=== PATIENT | male | born 1945 | race American Indian/Alaskan Native ===

== ENCOUNTER 2019-06-26 13:12 | Emergency (ER) | payer MEDICARE ==
[2019-06-26] MEDS ORDERED: BOOSTRIX IM ONE (13:33)
[2019-06-26] MEDS ORDERED: TYLENOL PO ONE (13:41)
--- NOTE | 2019-06-26 13:54 | Emergency Department Report ---
- General Chief complaint: Dizziness Stated complaint: DIZZINESS Time Seen by Provider: 06/26/19 13:29 Source: EMS Mode of arrival: Ambulatory Limitations: Altered Mental Status - History of Present Illness Initial comments: Mr. Coon is a 73 yo male with hx of atlaxia, pancytopenia, anemia, HTN who presents with head trauma, laceration and dizziness. He fell in the bathroom on yesterday. Has diffuse body pain. He has facial laceration. Unknown tetanus status According to discharge documentation from [facility], Mr. Coon was discharged on June 17 after 5 day hospital admission. At that time Mr. Coon was being evaluated for 1 month of dizziness generalized body pain and rash. Patient also desired halfway placement. Discharge medications include amlodipine and meclizine. He was [facility]u. Other medications include diphenhydramine and topical hydrocortisone. He currently resides at a new personal snf. MD Complaint: generalized weakness -: month(s) (1) Location: generalized Severity: mild Severity scale (0 -10): 7 Consistency: constant Improves with: none Worsens with: none Associated Symptoms: other (generalized pain, dizziness, laceration after fall) - Related Data Previous Rx's Medication Instructions Recorded Last Taken Type Acetaminophen [Acetaminophen TAB] 500 mg PO Q6HR PRN #20 tablet 06/26/19 Unknown Rx ED Review of Systems ROS: Stated complaint: DIZZINESS Other details as noted in HPI Comment: All other systems reviewed and negative Constitutional: malaise Musculoskeletal: myalgia ED Past Medical Hx - Past Medical History Previous Medical History?: Yes Hx Hypertension: Yes Hx Diabetes: Yes Hx Tuberculosis: No Additional medical history: pt is poor historian - Surgical History Past Surgical History?: No Additional Surgical History: pt is poor historian - Social History Smoking Status: Never Smoker Substance Use Type: None - Medications Home Medications: Home Medications Medication Instructions Recorded Confirmed Last Taken Type Acetaminophen [Acetaminophen TAB] 500 mg PO Q6HR PRN #20 tablet 06/26/19 Unknown Rx ED Physical Exam - General Limitations: Altered Mental Status General appearance: alert, in no apparent distress - Head Head exam: Present: normocephalic, other (3 cm laceration superficial dried blood lateral right eyebrow) - Eye Eye exam: Present: normal appearance - ENT ENT exam: Present: mucous membranes moist - Neck Neck exam: Present: normal inspection, full ROM - Respiratory Respiratory exam: Present: normal lung sounds bilaterally. Absent: respiratory distress, wheezes, rales, rhonchi - Cardiovascular Cardiovascular Exam: Present: regular rate, normal rhythm, normal heart sounds. Absent: systolic murmur, diastolic murmur, rubs, gallop - GI/Abdominal GI/Abdominal exam: Present: soft, normal bowel sounds. Absent: distended, tenderness, guarding, rebound - Rectal Rectal exam: Present: deferred - Extremities Exam Extremities exam: Present: normal inspection - Neurological Exam Neurological exam: Present: alert, oriented X3 - Psychiatric Psychiatric exam: Present: normal affect, normal mood - Skin Skin exam: Present: warm, dry, intact, normal color. Absent: rash ED Course Vital Signs 06/26/19 13:20 Temperature 98.6 F Pulse Rate 52 L Respiratory 20 Rate Blood Pressure 131/72 Blood Pressure 131/72 [Right] O2 Sat by Pulse 100 Oximetry ED Medical Decision Making - Radiology Data Radiology results: report reviewed CT head: No acute process - Medical Decision Making 1. Closed head injury: CT head without acute traumatic injury of 2. Facial laceration: Tdap booster provided suture repair not indicated 3. Dizziness and body pain with recent diagnosis of pancytopenia and anemia. Referred to [facility]. Prescribed Tylenol for pain control. Upon reassessment, patient was able to stand and transfer with minimal assistance. He has walking stick at the bedside. He appears steady yet careful with his gait. Upon discharge, Mr. Coon stated that he is effectively homeless. There is "too much friction" at his new personal snf. Awaiting case management recommendations. Critical care attestation.: If time is entered above; I have spent that time in minutes in the direct care of this critically ill patient, excluding procedure time. ED Disposition Clinical Impression: Closed head injury, Laceration of face, Lightheadedness, Whole body pain, Pancytopenia Disposition: DC-01 TO HOME OR SELFCARE Is pt being admited?: No Does the pt Need Aspirin: No Condition: Stable Additional Instructions: Please make an appointment to see a clinic doctor as soon as you can. Prescriptions: Acetaminophen [Acetaminophen TAB] 500 mg PO Q6HR PRN #20 tablet PRN Reason: Pain , Severe (7-10) Referrals: JORGE SYLVESTER MD [Primary Care Provider] - 3-5 Days
--- NOTE | 2019-06-26 14:49 | Cat Scan Report ---
CT BRAIN: 06/26/2019 INDICATION / CLINICAL INFORMATION: Trauma. COMPARISON: None available. FINDINGS: BRAIN/INTRACRANIAL STRUCTURES: Unenhanced CT images of the brain demonstrate no evidence of acute int racranial abnormality. Ventricles and sulci are prominent in size, consistent with prominent diffuse cerebral atrophy. There is no evidence of intracranial hemorrhage or mass. There are no abnormal extra-axial fluid jeana ections. Atherosclerotic vascular calcifications are present in the distal internal carotid arteries and verte bral arteries. EXTRACRANIAL STRUCTURES: Right periorbital soft tissue swelling is present, with no evidence to sugge st intraorbital abnormality. IMPRESSION: No evidence of acute intracranial abnormality. Chronic and age-related changes. All CT scans at this location are performed using dose reduction to ALARA by means of automated expos ure control. Signer Name: Oj Figueroa MD Signed: 06/26/2019 2:45 PM Workstation Name: [id number]
[2019-06-26 19:42] VITALS: BP 127/58
== END 2019-06-26 20:21 | disposition home or self-care (01) ==
LOC: ED 13:12
DX: S01.81XA Laceration without foreign body of other part of head, initial encounter (principal); R42 Dizziness and giddiness; M79.10 Myalgia, unspecified site; D61.818 Other pancytopenia; I10 Essential (primary) hypertension; E11.9 Type 2 diabetes mellitus without complications; W19.XXXA Unspecified fall, initial encounter; Y93.89 Activity, other specified; Y92.89 Other specified places as the place of occurrence of the external cause; Y99.8 Other external cause status
CPT/HCPCS: 70450; 90471; 90715

== ENCOUNTER 2019-07-02 16:51 | Emergency (ER) | payer MEDICARE ==
--- NOTE | 2019-07-02 19:02 | Emergency Department Report ---
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 Patient also have pancytopenia. Patient brought to the emergency room via EMS after patient was found wondering in [email or web address]'s parking lot. EMS report the patient was confused and does not know his current location or the time. Upon arrival to the ER, patient is alert and oriented 3, in no acute distress. Patient kept saying that his is admitted to this hospital and he gave an name and he wants to be re-joint with his . He stated that his 2 kids are asking about. He stated that he has a 15 years old son and in 10 years old daughter. Patient was seen here 6 days ago for evaluation after a fall with a negative CT brain for acute finding. - Related Data Previous Rx's Medication Instructions Recorded Last Taken Type Acetaminophen [Acetaminophen TAB] 500 mg PO Q6HR PRN #20 tablet 06/26/19 Unknown Rx Allergies Allergy/AdvReac Type Severity Reaction Status Date / Time No Known Allergies Allergy Verified 07/03/19 18:23 ED Review of Systems ROS: Stated complaint: GENERAL BODY PAIN/CONFUSED Other details as noted in HPI Comment: All other systems reviewed and negative Constitutional: denies: chills, fever Respiratory: denies: cough, orthopnea, shortness of breath, SOB with exertion, SOB at rest, wheezing Cardiovascular: denies: chest pain Gastrointestinal: denies: abdominal pain, nausea Musculoskeletal: denies: back pain Neurological: denies: headache, weakness, numbness, paresthesias, confusion, abnormal gait ED Past Medical Hx - Past Medical History Hx Hypertension: Yes Hx Diabetes: Yes Hx Tuberculosis: No Additional medical history: pt is poor historian - Surgical History Additional Surgical History: pt is poor historian - Social History Smoking Status: Former Smoker Substance Use Type: None - Medications Home Medications: Home Medications Medication Instructions Recorded Confirmed Last Taken Type Acetaminophen [Acetaminophen TAB] 500 mg PO Q6HR PRN #20 tablet 06/26/19 Unknown Rx ED Physical Exam - General Limitations: Altered Mental Status General appearance: alert, in no apparent distress - Head Head exam: Present: atraumatic, normocephalic, normal inspection - Eye Eye exam: Present: normal appearance, PERRL - ENT ENT exam: Present: normal exam, normal orophraynx, mucous membranes moist - Neck Neck exam: Present: normal inspection, full ROM. Absent: tenderness, meningismus, lymphadenopathy, thyromegaly - Respiratory Respiratory exam: Present: normal lung sounds bilaterally - Cardiovascular Cardiovascular Exam: Present: regular rate, normal rhythm, normal heart sounds - GI/Abdominal GI/Abdominal exam: Present: soft, normal bowel sounds. Absent: distended, tenderness, guarding, rebound, rigid, organomegaly, mass, bruit, pulsatile mass, hernia - Extremities Exam Extremities exam: Present: normal inspection, full ROM, normal capillary refill - Back Exam Back exam: Present: normal inspection, full ROM. Absent: CVA tenderness (R), CVA tenderness (L), muscle spasm, paraspinal tenderness, vertebral tenderness - Neurological Exam Neurological exam: Present: alert, oriented X3, CN II-XII intact, reflexes normal - Psychiatric Psychiatric exam: Present: normal mood - Skin Skin exam: Present: warm, intact, normal color ED Course Vital Signs 07/02/19 07/02/19 07/03/19 18:04 22:15 02:34 Temperature 98.3 F Pulse Rate 88 78 80 Respiratory 16 16 Rate Blood Pressure 127/82 180/101 154/98 [Right] O2 Sat by Pulse 97 96 95 Oximetry ED Medical Decision Making - Lab Data Result diagrams: 07/02/19 20:43 07/02/19 20:43 - Medical Decision Making Patient is 73 years old male with history of chronic ataxia using 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 Patient also have pancytopenia. Patient brought to the emergency room via EMS after patient was found wondering in [email or web address]'s parking lot. EMS report the patient was confused and does not know his current location or the time. Upon arrival to the ER, patient is alert and oriented 3, in no acute distress. Patient kept saying that his is admitted to this hospital and he gave an name and he wants to be re-joint with his . He stated that his 2 kids are asking about. He stated that he has a 15 years old son and in 10 years old daughter. Patient was seen here 6 days ago for evaluation after a fall with a negative CT brain for acute finding. Patient remained stable in the emergency room. Labs reviewed and is unremarkable. Patient is obviously homeless. Patient will be refer to case management, pediatric social worker for placement. Critical care attestation.: If time is entered above; I have spent that time in minutes in the direct care of this critically ill patient, excluding procedure time. ED Disposition Clinical Impression: Altered mental status, Homelessness Disposition: ELOPED Is pt being admited?: No Condition: Stable Referrals: JORGE SYLVESTER MD [Primary Care Provider] - 3-5 Days
[2019-07-02 20:54] LABS: Hematocrit 38.9 % (35.5-45.6); Mean Corpuscular HGB Conc 33 % (32-34); Mean Corpuscular Volume 96 fl (84-94); Platelet Count 114 K/mm3 (140-440); Red Blood Count 4.03 M/mm3 (3.65-5.03); Red Cell Distribution Width 15.1 % (13.2-15.2)
[2019-07-02 21:17] LABS: Albumin 3.3 g/dL (3.9-5); BUN/Creatinine Ratio 14; Blood Urea Nitrogen 10 mg/dL (9-20); Calcium 8.6 mg/dL (8.4-10.2); Hemolysis Index 191
[2019-07-02 21:27] LABS: Alanine Aminotransferase 39 units/L (7-56)
[2019-07-02 22:16] LABS: Anisocytosis 1+; Basophils % (Manual) 0 % (0.0-1.8); Ovalocytes 1+; Total Cells Counted 100
[2019-07-02 22:17] LABS: Platelet Estimate Appears Decreased
[2019-07-03 02:35] VITALS: BP 154/98
== END 2019-07-03 12:30 | disposition left against medical advice (07) ==
LOC: ED 16:51
DX: R41.82 Altered mental status, unspecified (principal); R27.0 Ataxia, unspecified; I10 Essential (primary) hypertension; E11.9 Type 2 diabetes mellitus without complications; Z59.0 Homelessness; Z87.891 Personal history of nicotine dependence
CPT/HCPCS: 36415; 80053; 85007; 85025

== ENCOUNTER 2019-07-03 17:58 | Emergency (ER) | payer MEDICARE ==
--- NOTE | 2019-07-03 18:25 | Event Note ---
ED Screening Note Date of service: 07/03/19 Time: 18:21 ED Screening Note: This is a 73 y.o. M. that presents to the ER with neck and thoracic back pain for 1 week. Patient states he fell 1 week ago. This initial assessment/diagnostic orders/clinical plan/treatment(s) is/are subject to change based on patients health status, clinical progression and re- assessment by fellow clinical providers in the ED. Further treatment and workup at subsequent clinical providers discretion. Patient/guardian urged not to elope from the ED as their condition may be serious if not clinically assessed and managed. Initial orders include: XR of C-spine and thoracic spine
[2019-07-03] MEDS ORDERED: TYLENOL PO ONE (20:10)
--- NOTE | 2019-07-03 21:46 | Cat Scan Report ---
CT CERVICAL SPINE WITHOUT CONTRAST INDICATION: Neck pain after fall. COMPARISON: None available. TECHNIQUE: Axial, coronal and sagittal CT imaging of the cervical spine without contrast was performe d. All CT scans at this location are performed using CT dose reduction for ALARA by means of automat ed exposure control. FINDINGS: VERTEBRAE:No acute fracture. There is minimal retrolisthesis at C4-C5 and anterolisthesis at C7-T1. DISC SPACES: Multilevel severe discogenic degenerative changes are noted from C4 through C7. FACET JOINTS:Facet hypertrophy is noted bilaterally at C7-T1. CENTRAL CANAL: Multilevel neural foraminal narrowing is noted bilaterally. No significant central can al stenosis is seen. SOFT TISSUES:No significant abnormality. LUNG APICES: No significant abnormality. ADDITIONAL FINDINGS: None IMPRESSION: 1. No acute abnormality of the cervical spine. 2. Severe cervical spondylosis. Signer Name: Juan Aguilar MD Signed: 07/03/2019 9:41 PM Workstation Name: [id number]
--- NOTE | 2019-07-03 21:50 | Cat Scan Report ---
CT lumbar spine without contrast CLINICAL HISTORY: Back pain, fall. FINDINGS: There is no CT evidence of acute compression or fracture involving lumbar spine. The irregu larity of the posterior endplates at L4-5 appear to be on a degenerative basis at. Additionally, the spondylosis at this level mildly deforms the ventral thecal sac. The facet joint hypertrophy is a gre ater on the right at L4-5 with mild foraminal narrowing. There is no significant spondylolisthesis at. There are advanced degenerative disc changes at L5-S1 w ith vacuum phenomenon. The broad-based disc bulge mildly encroaches on the lateral recesses. The face t joint arthropathy is greater on the left with moderate left neural foraminal narrowing. The disc bulge L3-4 slightly flattens the ventral thecal sac at. The disc bulge and facet joint hyper trophy at L2-3 mildly deform the thecal sac at. There is slight foraminal narrowing bilaterally. All CT scans at this location are performed using the CT dose reduction for [employer] by means of automated e xposure control. IMPRESSION: There is no CT evidence of acute compression fracture involving the lumbar spine There are multilevel degenerative changes, most notably at L4-5 and L5-S1 as detailed above. Signer Name: Jonas Tobin MD Signed: 07/03/2019 9:46 PM Workstation Name: [id number]
--- NOTE | 2019-07-04 00:07 | Emergency Department Report ---
ED Fall HPI - General Chief Complaint: Back Pain/Injury Stated Complaint: BACK/RT KNEE PAIN Time Seen by Provider: 07/03/19 18:21 Source: patient Mode of arrival: Ambulatory - History of Present Illness Initial Comments: Patient is a 73-year-old -[place] male with chronic back pain who presented to the ED with acute exacerbation of his chronic low back pain and neck pain for the last 5 days. Patient states that he fell on the floor 5 days ago when trying to stand up from a seated position on the toilet. Patient states that he was initially evaluated in this ED and had a head CT scan without contrast which was all normal. Patient states that he was discharged home but was never discharged home on any medications for pain. Patient states that he has been having persistent neck and back pain since then. Patient denies easiness, loss of consciousness, nausea, vomiting, abdominal pain, chest pain, shortness of breath, fever, chills, change in vision, hematuria or dysuria. MD Complaint: fall, other (Neck and back pain from a recent fall 5 days ago) -: Sudden, days(s) (5) Fall From: other (from a seated position on a toilet) When Fall Occurred: other (5 days ago) Fall Witnessed: no Place Fall Occurred: home Loss of Consciousness: none Prolonged Down Time?: no Symptoms Prior to Fall: none Location: neck, back Severity: moderate Severity scale (0 -10): 5 Quality: sharp, aching Context: other (lost balance) Associated Symptoms: denies, neck pain. denies: headache, numbness, weakness, chest paint, abdominal pain, hematuria, lightheaded, confusion, other - Related Data Previous Rx's Medication Instructions Recorded Last Taken Type Acetaminophen [Acetaminophen TAB] 500 mg PO Q6HR PRN #20 tablet 06/26/19 Unknown Rx Allergies Allergy/AdvReac Type Severity Reaction Status Date / Time No Known Allergies Allergy Verified 07/03/19 18:23 ED Review of Systems ROS: Stated complaint: BACK/RT KNEE PAIN Other details as noted in HPI Constitutional: denies: chills, fever Eyes: denies: eye pain, eye discharge, vision change ENT: denies: ear pain, throat pain Respiratory: denies: cough, shortness of breath, wheezing Cardiovascular: denies: chest pain, palpitations Endocrine: no symptoms reported Gastrointestinal: denies: abdominal pain, nausea, vomiting, diarrhea Genitourinary: denies: urgency, dysuria Musculoskeletal: back pain, arthralgia (neck pain), myalgia. denies: joint swelling Skin: denies: rash, lesions Neurological: denies: headache, weakness, paresthesias Psychiatric: denies: anxiety, depression Hematological/Lymphatic: denies: easy bleeding, easy bruising ED Past Medical Hx - Past Medical History Previous Medical History?: Yes Hx Hypertension: Yes Hx Diabetes: Yes Hx Tuberculosis: No Additional medical history: pt is poor historian - Surgical History Past Surgical History?: Yes Additional Surgical History: pt is poor historian - Social History Smoking Status: Never Smoker Substance Use Type: None - Medications Home Medications: Home Medications Medication Instructions Recorded Confirmed Last Taken Type Acetaminophen [Acetaminophen TAB] 500 mg PO Q6HR PRN #20 tablet 06/26/19 Unknown Rx ED Physical Exam - General Limitations: No Limitations General appearance: alert, in no apparent distress - Head Head exam: Present: atraumatic, normocephalic, normal inspection - Eye Eye exam: Present: normal appearance, PERRL, EOMI. Absent: scleral icterus, conjunctival injection, nystagmus, periorbital swelling, periorbital tenderness Pupils: Present: normal accommodation - ENT ENT exam: Present: normal exam, normal orophraynx, mucous membranes moist, TM's normal bilaterally, normal external ear exam - Neck Neck exam: Present: normal inspection, tenderness (Palpable cervical paraspinal musculoskeletal tenderness), full ROM - Respiratory Respiratory exam: Present: normal lung sounds bilaterally. Absent: respiratory distress, wheezes, rales, rhonchi, chest wall tenderness, accessory muscle use, prolonged expiratory - Cardiovascular Cardiovascular Exam: Present: regular rate, normal rhythm, normal heart sounds. Absent: systolic murmur, diastolic murmur, rubs, gallop - GI/Abdominal GI/Abdominal exam: Present: soft, normal bowel sounds. Absent: distended, tenderness, guarding, rebound, hyperactive bowel sounds, organomegaly - Rectal Rectal exam: Present: deferred - Extremities Exam Extremities exam: Present: normal inspection, full ROM, normal capillary refill - Back Exam Back exam: Present: normal inspection, full ROM, tenderness (Palpable lumbosacral paraspinal musculoskeletal tenderness), muscle spasm, paraspinal tenderness. Absent: CVA tenderness (L) - Neurological Exam Neurological exam: Present: alert, oriented X3, CN II-XII intact, normal gait, reflexes normal - Psychiatric Psychiatric exam: Present: normal affect, normal mood - Skin Skin exam: Present: warm, dry, intact, normal color. Absent: rash ED Course Vital Signs 07/03/19 07/03/19 18:22 20:22 Temperature 98.1 F Pulse Rate 89 Respiratory 16 16 Rate Blood Pressure 117/80 O2 Sat by Pulse 93 Oximetry - Reevaluation(s) Reevaluation #1: 07/04/19 00:05 This is a 73-year-old -[place] male with chronic back pain who presented to the ED with acute exacerbation of his chronic low back pain and neck pain for the last 5 days. In the ED, patient is alert and oriented 3 and is not in distress, but appears to be in pain. Patient was treated for pain in the ED and L-spine CT scan without contrast shows no acute fractures or subluxations but chronic degenerative lumbar disc disease. The C-spine CT scan without contrast also shows no acute fractures or subluxations but chronic degenerative cervical disc disease. On reevaluation, patient's pain resolved with medications, patient has been sleeping in the room with no difficulty and ambulating normally in the ED using his walking cane. Patient was discharged home and advised to take Tylenol as needed for pain and advised to follow-up with his primary care physician in 5-7 days for reevaluation or return to the ED immediately if symptoms get worse. 07/04/19 00:07 07/04/19 00:08 07/04/19 00:11 07/04/19 00:17 ED Medical Decision Making - Radiology Data Radiology results: report reviewed, image reviewed Findings [address] [address] Cat Scan Report Signed Patient: RENY FUNG MR#: [id number] 36 : 1945 Acct:[id number] Age/Sex: 73 / M ADM Date: 07/03/19 Loc: ED Attending Dr: Ordering Physician: DOMONIQUE BOYCE Date of Service: 07/03/19 Procedure(s): CT lumbar spine wo con Accession Number(s): [id number] cc: DOMONIQUE BOYCE CT lumbar spine without contrast CLINICAL HISTORY: Back pain, fall. FINDINGS: There is no CT evidence of acute compression or fracture involving lumbar spine. The irregularity of the posterior endplates at L4-5 appear to be on a degenerative basis at. Additionally, the spondylosis at this level mildly deforms the ventral thecal sac. The facet joint hypertrophy is a greater on the right at L4-5 with mild foraminal narrowing. There is no significant spondylolisthesis at. There are advanced degenerative disc changes at L5-S1 with vacuum phenomenon. The broad-based disc bulge mildly encroaches on the lateral recesses. The facet joint arthropathy is greater on the left with moderate left neural foraminal narrowing. The disc bulge L3-4 slightly flattens the ventral thecal sac at. The disc bulge and facet joint hypertrophy at L2-3 mildly deform the thecal sac at. There is slight foraminal narrowing bilaterally. All CT scans at this location are performed using the CT dose reduc tion for ALARA by means of automated exposure control. IMPRESSION: There is no CT evidence of acute compression fracture involving the lumbar spine There are multilevel degenerative changes, most notably at L4-5 and L5-S1 as detailed above. Signer Name: Jonas Tobin MD Signed: 07/03/2019 9:46 PM Workstation Name: [id number] Findings [facility] [address] [place] [address] Cat Scan Report Signed Patient: RENY FUNG MR#: [id number] [birth year] : 1945 Acct:[id number] Age/Sex: 73 / M ADM Date: 07/03/19 Loc: ED Attending Dr: Ordering Physician: DOMONIQUE BOYCE Date of Service: 07/03/19 Procedure(s): CT cervical spine wo con Accession Number(s): [id number] cc: DOMONIQUE BOYCE CT CERVICAL SPINE WITHOUT CONTRAST INDICATION: Neck pain after fall. COMPARISON: None available. TECHNIQUE: Axial, coronal and sagittal CT imaging of the cervical spine without contrast was performed. All CT scans at this location are performed using CT dose reduction for ALARA by means of automated exposure control. FINDINGS: VERTEBRAE:No acute fracture. There is minimal retrolisthesis at C4-C5 and anterolisthesis at C7-T1. DISC SPACES: Multilevel severe discogenic degenerative changes are noted from C4 through C7. FACET JOINTS:Facet hypertrophy is noted bilaterally at C7-T1. CENTRAL CANAL: Multilevel neural foraminal narrowing is noted bilaterally. No significant central canal stenosis is seen. SOFT TISSUES:No significant abnormality. LUNG APICES: No significant abnormality. ADDITIONAL FINDINGS: None IMPRESSION: 1. No acute abnormality of the cervical spine. 2. Severe cervical spondylosis. Signer Name: Juan Aguilar MD Signed: 07/03/2019 9:41 PM Workstation Name: [id number] Transcribed By: ARNALDO Dictated By: Juan Aguilar MD Electronically Authenticated By: Juan Aguilar MD Signed Date/Time: 07/03/192140 - Medical Decision Making This is a 73-year-old -[place] male with chronic back pain who presented to the ED with acute exacerbation of his chronic low back pain and neck pain for the last 5 days. In the ED, patient is alert and oriented 3 and is not in distress, but appears to be in pain. Patient was treated for pain in the ED and L-spine CT scan without contrast shows no acute fractures or subluxations but chronic degenerative lumbar disc disease. The C-spine CT scan without contrast also shows no acute fractures or subluxations but chronic degenerative cervical disc disease. On reevaluation, patient's pain resolved with medications, patient has been sleeping in the room with no difficulty and ambulating normally in the ED using his walking cane. Patient was discharged home and advised to take Tylenol as needed for pain and advised to follow-up with his primary care physician in 5-7 days for reevaluation or return to the ED immediately if symptoms get worse. - Differential Diagnosis Cervical sprain; Muscle spasm of back; chronic low back pain Critical care attestation.: If time is entered above; I have spent that time in minutes in the direct care of this critically ill patient, excluding procedure time. ED Disposition Clinical Impression: Spasm of muscle of lower back, Cervical paraspinous muscle spasm Chronic lower back pain Qualifiers: Back pain laterality: unspecified Sciatica presence: without sciatica Qualified Code(s): M54.5 - Low back pain; G89.29 - Other chronic pain Disposition: TO HOME OR SELFCARE Is pt being admited?: No Does the pt Need Aspirin: No Condition: Stable Instructions: Cervical Sprain (ED), Muscle Spasm (ED), Chronic Back Pain (ED) Additional Instructions: Take Tylenol as needed for pain and follow up with your primary care physician in 5-7 days for reevaluation. Return to the ED immediately if symptoms get worse. Referrals: PRIMARY CARE, [Primary Care Provider] - 3-5 Days Time of Disposition: 00:16 Print Language: BRUNEIAN
[2019-07-04] MEDS ORDERED: IBUPROFEN PO ONE (01:02)
[2019-07-04 03:13] VITALS: BP 124/77
== END 2019-07-04 02:10 | disposition home or self-care (01) ==
LOC: ED 17:58
DX: G89.29 Other chronic pain (principal); M54.5 Low back pain; M62.830 Muscle spasm of back; M62.838 Other muscle spasm; I10 Essential (primary) hypertension; E11.9 Type 2 diabetes mellitus without complications; Z79.899 Other long term (current) drug therapy
CPT/HCPCS: 72125; 72131